=== PATIENT | male | born 1960 | race Caucasian/White ===

== ENCOUNTER 2017-02-05 12:57 | Observation (INO) | payer OTHER ==
[~2017-02-05] VITALS: Ht 166.4 cm; Wt 156.0 kg
[~2017-02-05 12:57] MED LIST: ADVAIR 500/501 DISK IH; ASPIR 8181 M1 PO; DICLOFENAC SOD100 MG PO; LANSOPRAZOLE30 MG PO; LISINOPRIL20 MG PO; METOPROLOL TART25 MG PO; OSTEO BI-FLEX1 EAC1 PO; PROAIR HFA8.5 GM IH; SINGULAIR10 MG PO; ZESTORETIC 20-1 EAC1 PO
[2017-02-05 14:13] LABS: HEMATOCRIT 39.4 % (38.0-50.0); MCH 25.4 PG (29.0-34.0); MCHC 31.2 G/DL (30.0-36.0); MCV 81.2 FL (86-99); MEAN PLAT.VOLUME 9.1 uM^3 (9.0-12.4); PLATELET COUNT 364 K/uL (156-360); RBC DIS.WIDTH-CV 15.5 % (11.8-14.6); RBC DIS.WIDTH-SD 45.7 % (39-53); RED BLOOD COUNT 4.85 M/uL (4.00-5.50); WHITE BLOOD COUNT 10.9 K/uL (4.1-10.2)
[2017-02-05 14:25] LABS: CHLORIDE 100 mEq/L (99-109); POTASSIUM 3.7 mEq/L (3.7-5.4); SODIUM 136 mEq/L (136-147)
[2017-02-05 14:27] LABS: GLUCOSE 224 mg/dL (70-99)
[2017-02-05 14:28] LABS: ANION GAP 9 MEQ/L (2-14)
[2017-02-05 14:31] LABS: GFR ESTIMATE (CALCULATED) > 59 mL/min/; UREA NITROGEN (BUN) 15 mg/dL (9-23)
[2017-02-05 14:34] LABS: TROP-I INTERPRETATION NEGATIVE; TROPONIN-I < 0.01 ng/mL (0.0-0.30)
[2017-02-05] MEDS ORDERED: GLIMEPIRIDE1 MG PO (15:42)
[2017-02-05] MEDS ORDERED: JANUVIA100 MG PO (15:43)
[2017-02-05] MEDS ORDERED: PROVENTIL,2.5 MG/3 M IH (15:43)
[2017-02-05] MEDS ORDERED: PRINIVIL20 MG PO (15:44)
[2017-02-05] MEDS ORDERED: CARAFATE1 GM PO (15:44)
[2017-02-05] MEDS ORDERED: RANITIDINE HCL300 MG PO (15:45)
[2017-02-05] MEDS ORDERED: LO-DOSE ASPIRIN81 M2 PO (15:46)
[2017-02-05] MEDS ORDERED: ADVIL COLD-SIN1 EACH PO (15:46)
[2017-02-05 18:06] LABS: POINT-OF-CARE METER ID UU13113700
[2017-02-05 18:25] VITALS: BP 167/72
[2017-02-05 19:45] LABS: TROP-I INTERPRETATION NEGATIVE; TROPONIN-I < 0.01 ng/mL (0.0-0.30)
[2017-02-05 20:14] VITALS: BP 182/81
[2017-02-06] VITALS: BP 220/110
[2017-02-06 03:12] LABS: TROP-I INTERPRETATION NEGATIVE; TROPONIN-I < 0.01 ng/mL (0.0-0.30)
[2017-02-06 04:45] VITALS: BP 136/80
[2017-02-06 06:24] LABS: HEMATOCRIT 38.2 % (38.0-50.0); MCH 25.7 PG (29.0-34.0); MCHC 31.7 G/DL (30.0-36.0); MCV 81.3 FL (86-99); MEAN PLAT.VOLUME 9.8 uM^3 (9.0-12.4); PLATELET COUNT 347 K/uL (156-360); RBC DIS.WIDTH-CV 15.6 % (11.8-14.6); RBC DIS.WIDTH-SD 45.8 % (39-53); WHITE BLOOD COUNT 11.2 K/uL (4.1-10.2)
[2017-02-06 07:22] LABS: ANION GAP 13 MEQ/L (2-14); CHLORIDE 93 MEQ/L (99-109); GFR ESTIMATE (CALCULATED) > 59 mL/min/; GLUCOSE 243 mg/dL (70-99); POTASSIUM 3.6 MEQ/L (3.7-5.4); SAMPLE HEMOLYSIS CHECK 0; SAMPLE ICTERIC CHECK 0; SAMPLE LIPEMIA CHECK 0; SODIUM 134 MEQ/L (136-147); UREA NITROGEN (BUN) 21 mg/dL (9-23)
[2017-02-06 08:10] LABS: POINT-OF-CARE METER ID UU13113831
[2017-02-06 09:20] VITALS: BP 141/66
[2017-02-06] MEDS ORDERED: LOPRESSOR50 MG PO (10:15)
== END 2017-02-06 11:55 | disposition home or self-care (01) ==
LOC: EME 12:57 → EDOF 15:31 → 5WEST 16:20
PROVIDERS: Hospitalist; Internal Medicine
DX: R60.0 Localized edema (principal); R06.00 Dyspnea, unspecified; E11.65 Type 2 diabetes mellitus with hyperglycemia; I10 Essential (primary) hypertension; E66.01 Morbid (severe) obesity due to excess calories; Z68.43 Body mass index [BMI] 50.0-59.9, adult; G47.33 Obstructive sleep apnea (adult) (pediatric); J45.909 Unspecified asthma, uncomplicated; M19.90 Unspecified osteoarthritis, unspecified site; Z91.19 Patient's noncompliance with other medical treatment and regimen; K21.9 Gastro-esophageal reflux disease without esophagitis
CPT/HCPCS: 80048; 82948; 83880; 84484; 85027; 93005; 93971; 94640; 94640 76; 99202; 99281; 99285; G0378; J0360; J1815; J1940